=== PATIENT | male | born 1955 | race Caucasian/White ===

== ENCOUNTER → 2016-12-04 | Outpatient (CLI) | payer BC | LOC: M LAB 11:16 | PROVIDERS: ATTEND Radiology Therapeutic Radiology | DX: C61 Malignant neoplasm of prostate (principal) ==

== ENCOUNTER → 2017-11-16 | Outpatient (CLI) | payer BC ==
[2017-11-16 14:53] LABS: PSA SCREENING 0.57 NG/ML (< 4.0)
== END ==
LOC: M ADAMS 10:20
DX: C61 Malignant neoplasm of prostate (principal)
CPT/HCPCS: G0103

== ENCOUNTER → 2018-07-01 | Outpatient (REF) | payer BC | LOC: M LABDRWAD 13:31 | PROVIDERS: ATTEND Urology | DX: C61 Malignant neoplasm of prostate (principal) ==

== ENCOUNTER → 2019-01-03 | Outpatient (REF) | payer BC | LOC: M LAB REF 12:53 | PROVIDERS: ATTEND Urology | DX: C61 Malignant neoplasm of prostate (principal); N52.9 Male erectile dysfunction, unspecified ==

== ENCOUNTER → 2019-02-14 | Outpatient (REF) | payer BC ==
[2019-02-14 13:00] LABS: HEMATOCRIT 40.1 % (42.0-52.0); HEMOGLOBIN 13.4 g/dl (13.5-17.5); MEAN CORPUSCULAR HEMOGLOBIN 31.6 pg (27.0-33.0); MEAN CORPUSCULAR HGB CONC 33.4 g/dl (32.0-36.5); MEAN CORPUSCULAR VOLUME 94.6 fl (80.0-96.0); PLATELET COUNT, AUTOMATED 242 10^3/uL (150-450); RED BLOOD COUNT 4.24 10^6/uL (4.30-6.10); WHITE BLOOD COUNT 4.6 10^3/uL (4.0-10.0)
[2019-02-14 13:16] LABS: ALT/SGPT 44 U/L (12-78); BILIRUBIN,TOTAL 0.6 MG/DL (0.2-1.0); BLOOD UREA NITROGEN 21 MG/DL (7-18); CALCIUM LEVEL 8.5 MG/DL (8.8-10.2); CARBON DIOXIDE LEVEL 27 MEQ/L (21-32); CHLORIDE LEVEL 107 MEQ/L (98-107); CHOLESTEROL LEVEL 203 MG/DL (<200); CREATININE FOR GFR 1.18 MG/DL (0.70-1.30); GLOMERULAR FILTRATION RATE > 60.0 (>49); GLUCOSE, FASTING 82 MG/DL (70-100); HDL CHOLESTEROL 59 MG/DL (>40); LDL CHOLESTEROL 127 MG/DL (<100); NON-HDL-C 144 MG/DL; POTASSIUM SERUM 4.3 MEQ/L (3.5-5.1); SODIUM LEVEL 140 MEQ/L (136-145); TOTAL PROTEIN 6.6 GM/DL (6.4-8.2); TRIGLYCERIDES LEVEL 84 MG/DL (<150)
== END ==
LOC: M LABDRWAD 12:32
PROVIDERS: ATTEND Internal Medicine
DX: E78.5 Hyperlipidemia, unspecified (principal)

== ENCOUNTER → 2019-04-18 | Outpatient (REF) | payer BC ==
[2019-04-18 14:02] LABS: BLOOD UREA NITROGEN 22 MG/DL (7-18); CALCIUM LEVEL 9.1 MG/DL (8.8-10.2); CARBON DIOXIDE LEVEL 24 MEQ/L (21-32); CHLORIDE LEVEL 107 MEQ/L (98-107); CREATININE FOR GFR 1.26 MG/DL (0.70-1.30); GLOMERULAR FILTRATION RATE > 60.0 (>49); GLUCOSE, FASTING 92 MG/DL (70-100); POTASSIUM SERUM 4.1 MEQ/L (3.5-5.1); SODIUM LEVEL 138 MEQ/L (136-145)
== END ==
LOC: M LABDRWAD 13:05
PROVIDERS: ATTEND Urology
DX: R31.29 Other microscopic hematuria (principal)

== ENCOUNTER → 2019-07-04 | Outpatient (REF) | payer BC, MEDICARE, SELFPAY | LOC: M LABDRAW1 15:24 → M LABDRWAD 15:24 | PROVIDERS: ATTEND Urology | DX: C61 Malignant neoplasm of prostate (principal) ==

== ENCOUNTER → 2019-09-15 | Outpatient (CLI) | payer MEDICARE | LOC: M LABSMTC 12:59 | PROVIDERS: ATTEND Family Medicine | DX: Z11.59 Encounter for screening for other viral diseases (principal); Z03.818 Encounter for observation for suspected exposure to other biological agents ruled out | CPT/HCPCS: C9803; U0003 ==